=== PATIENT | female | born 2005 | race Caucasian/White ===

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

== ENCOUNTER 2024-05-31 19:58 | Emergency (ER) | payer MEDICAID ==
[~2024-05-31] VITALS: Ht 157.5 cm; Wt 67.0 kg
[2024-05-31 20:40] VITALS: PULSE 109; RESP 22; O2SAT 96
[2024-05-31] MEDS: ipratropium/albuterol 3ml nebule NEB ONE (20:40)
[2024-05-31] MEDS: albuterol 2.5 MG/3 ML nebule NEB ONE (20:40)
[2024-05-31 20:50] VITALS: PULSE 110; RESP 20; O2SAT 98
[2024-05-31] MEDS: dexamethasone sod phosphate 10mg/ml inj PO STA (21:54)
[2024-05-31] MEDS: albuterol 2.5 MG/3 ML nebule CONTNEB PRN (22:35)
[2024-05-31 22:38] VITALS: PULSE 125; RESP 22; O2SAT 92
[2024-05-31] MEDS: normal saline 1000ML IV soln IVB ONE (22:42)
[2024-05-31] MEDS: methylPREDNISolone sod succ 125mg/2ml vial IV ONE (22:44)
[2024-05-31] MEDS: magnesium sulf-water 2g/50mL 50 ML IV ONE (22:48)
[2024-05-31 22:55] LABS: BASOPHILS # (AUTO) 0.1 X10'3 (0-0.2); BASOPHILS % (AUTO) 0.4 % (0-1); EOSINOPHILS # (AUTO) 1.6 X10'3 (0-0.9); EOSINOPHILS % (AUTO) 8.2 % (0-6); HEMATOCRIT 41.6 % (35.0-45.0); HEMOGLOBIN 13.4 g/dl (12.0-16.0); LYMPHOCYTES # (AUTO) 2.7 X10'3 (1.1-4.8); LYMPHOCYTES % (AUTO) 13.8 % (21-51); MEAN CORPUSCULAR HEMOGLOBIN 25.1 PG (27.0-31.0); MEAN CORPUSCULAR HGB CONC 32.2 g/dL (33.0-36.5); MEAN PLATELET VOLUME 8.1 FL (7.4-10.4); MONOCYTES # (AUTO) 1.7 X10'3 (0-0.9); MONOCYTES % (AUTO) 8.7 % (2-12); NEUTROPHILS # (AUTO) 13.2 X10'3 (1.8-7.7); NEUTROPHILS % (AUTO) 68.9 % (42-75); PLATELET COUNT 472 X10'3 (140-440); RED BLOOD COUNT 5.33 X10'6 (4.20-5.60); WHITE BLOOD COUNT 19.2 X10'3 (4.5-11.0)
[2024-05-31 22:59] LABS: ALBUMIN 3.9 G/DL (3.4-5.0); ANION GAP 9 (8-16); BLOOD UREA NITROGEN 7 MG/DL (7-18); BUN/CREATININE RATIO 10.3 (10.0-20.0); CALCIUM 8.8 MG/DL (8.5-10.1); CHLORIDE 105 MMOL/L (99-107); CREATININE 0.68 MG/DL (0.40-0.90); GLUCOSE 113 MG/DL (70-104); POTASSIUM 3.2 MMOL/L (3.5-5.1); SODIUM 141 MMOL/L (135-145); TOTAL CARBON DIOXIDE 26.6 MMOL/L (24-32); eCRCL 104 ML/MIN; eGFR > 90 ML/MIN
[2024-05-31 23:40] VITALS: PULSE 134; RESP 20; O2SAT 92
[2024-05-31 23:45] VITALS: PULSE 136; RESP 22; O2SAT 96
[2024-05-31 23:50] VITALS: PULSE 133; RESP 22; O2SAT 92
[2024-05-31] MEDS: potassium Cl 20 mEq SR tablet PO STA (23:50)
[2024-06-01 00:46] VITALS: PULSE 121; RESP 16; O2SAT 96
[2024-06-01 01:36] LABS: BILIRUBIN,URINE NEGATIVE (Neg); CLARITY,URINE SLIGHTLY CLOUDY (Clear); COLOR,URINE STRAW (Yellow); GLUCOSE, URINE 100 mg/dl (Neg); KETONES,URINE NEGATIVE (Neg); LEUKOCYTE ESTERASE ,URINE NEGATIVE (Neg); NITRITES, URINE NEGATIVE (Neg); OCCULT BLOOD,URINE NEGATIVE (Neg); PROTEIN,URINE NEGATIVE (Neg); UROBILINOGEN,URINE 0.2 E.U/dL (0.2-1.0)
[2024-06-01 01:37] LABS: URINE HCG NEGATIVE (NEG)
[2024-06-01 01:39] LABS: UA COLLECTION TYPE NON-SPECIFIED
[2024-06-01 01:44] LABS: BACTERIA,URINE FEW /HPF (Neg); RBC,URINE 0-2 /HPF (0-2); WBC,URINE 0-4 /HPF (0-4)
[2024-06-01 01:46] LABS: SQUAMOUS EPITHELIAL CELL,UR MODERATE /LPF (FEW)
[2024-06-01 01:58] VITALS: PULSE 131
[2024-06-01] MEDS ORDERED: PRED20TA PO (03:04)
[2024-06-01 03:09] VITALS: BP 122/86; RESP 24; TEMP 98; O2SAT 93
== END 2024-06-01 03:21 | disposition home or self-care (01) ==
LOC: ER 19:58
DX: J45.901 Unspecified asthma with (acute) exacerbation (principal); Z20.822 Contact with and (suspected) exposure to COVID-19; Z79.2 Long term (current) use of antibiotics; Z79.899 Other long term (current) drug therapy
CPT/HCPCS: 36415; 71045; 80048; 81001; 81025; 84145; 85025; 87811; 94640; 94644; 96365; 96375; 99291; 99292; J1100; J2919; J7030; 94760; 99285; A7015

== ENCOUNTER 2024-08-03 16:04 | Emergency (ER) | payer MEDICAID ==
[~2024-08-03] VITALS: Ht 157.5 cm; Wt 68.3 kg
[2024-08-03 16:07] VITALS: TEMP 97.8
[2024-08-03] MEDS: diphenhydrAMINE 25 MG/10 ML UD oral solution PO ONE (18:42)
[2024-08-03] MEDS: predniSONE 20 mg tablet PO ONE (18:43)
[2024-08-03] MEDS: ipratropium/albuterol 3ml nebule NEB ONE (18:50)
[2024-08-03 18:52] VITALS: PULSE 120; RESP 18; O2SAT 92
[2024-08-03 18:58] VITALS: PULSE 130; RESP 18; O2SAT 99
[2024-08-03 19:32] VITALS: BP 130/79; PULSE 113; RESP 16; O2SAT 92
[2024-08-03] MEDS ORDERED: PRED20TA PO (19:40)
[2024-08-03] MEDS ORDERED: ALBU8HFA INH (19:40)
== END 2024-08-03 19:57 | disposition home or self-care (01) ==
LOC: ER 16:04
DX: J45.901 Unspecified asthma with (acute) exacerbation (principal); Z20.822 Contact with and (suspected) exposure to COVID-19; Z79.2 Long term (current) use of antibiotics; Z79.899 Other long term (current) drug therapy
CPT/HCPCS: 36415; 71045; 87811; 94640; 99284; J7512; Q0163; 94760